=== PATIENT | male | born 1950 | race Caucasian/White ===

== ENCOUNTER → 2018-03-31 | Outpatient (CLI) | payer BC, OTHER | LOC: HYPER 07:29 | DX: S91.101A Unspecified open wound of right great toe without damage to nail, initial encounter (principal); M10.071 Idiopathic gout, right ankle and foot; I10 Essential (primary) hypertension; Z87.891 Personal history of nicotine dependence; X58.XXXA Exposure to other specified factors, initial encounter; Y93.89 Activity, other specified; Y92.89 Other specified places as the place of occurrence of the external cause; Y99.8 Other external cause status ==